=== PATIENT | male | born 1975 | race Caucasian/White ===

== ENCOUNTER 2022-12-19 18:21 | Emergency (ER) | payer OTHER, SELFPAY ==
[2022-12-19 18:30] VITALS: BP 159/106; PULSE 100; RESP 20; TEMP 36.9; O2SAT 97; BMI 30.4
--- NOTE | 2022-12-19 18:48 | XR_ITS ---
The [address] [address] Patient Name: ZAHEER RODRIGUEZ MRN: [id number] date: 1975 Sex: M Assigned Patient Location: ER Current Patient Location: ER Accession/Order Number: [id number] Exam Date: 12/19/2022 19:00 Report Date: 12/19/2022 19:20 At the request of: BRET LUCIO Procedure: XR ankle LT min 3V EXAM: XR ankle LT min 3V HISTORY: Pain COMPARISON: None. TECHNIQUE: 3 views FINDINGS: No osseous lesion, fracture, dislocation or subluxation. Joint spaces are normal. The pre-Achilles fat is visualized. No visualized effusion. No visualized soft tissue edema. Scattered atherosclerosis of the vascular structures XR/XR ankle LT min 3V IMPRESSION: No visualized acute abnormality Electronically authenticated by: DENISE JIMENEZ Date: 12/19/2022 19:20
--- NOTE | 2022-12-19 18:49 | ED.LOWEXI1 ---
HPI - Extremity Injury (Lower) General Chief Complaint: Extremity Injury, Lower Stated Complaint: leg injury Time Seen by Provider: 12/19/22 18:36 Source: patient Mode of arrival: walk-in Limitations: no limitations History of Present Illness HPI Narrative: 47-year-old male presents for pain in his left heel leave area. He was playing tennis today and he was pushing off with this leg and he felt like some him with a baseball bat. The lower gastrocnemius area going into the Achilles tendon region. No other injury was sustained. No knee pain. Related Data Home Medications Medication Instructions Recorded Confirmed No Known Home Medications 12/19/22 12/19/22 Allergies Allergy/AdvReac Type Severity Reaction Status Date / Time No Known Drug Allergies Allergy Verified 12/19/22 18:30 Review of Systems ROS Narrative A ten point review of systems is negative except as noted above. PFSH PFSH Social History Smoking status: Former smoker Exam Narrative Exam Narrative: Nurses note and vital signs reviewed and patient is not hypoxic. General: The patient appears well and in no apparent distress. Patient is resting comfortably on cart. Skin: Warm, dry, no pallor noted. There is no rash noted. Head: Normocephalic, atraumatic Eye: Normal conjunctiva, no drainage Ears, Nose, Mouth, and Throat: oral mucosa is moist. Nares patent. Cardiovascular: Regular Rate and Rhythm Respiratory: Patient is in no distress, no accessory muscle use, lungs are clear to auscultation, no wheezing, rales or rhonchi Back: non-tender GI: soft and nontender Musculoskeletal: he has no palpable tenderness over the lateral or medial malleoli. He has a defect at the Achilles tendon on the left with abnormal Baker's test. Skin intact. Neurological: A&O, normal speech Psychiatric: Cooperative Constitutional Vital Signs, click to edit/add: Last Vital Signs Temp 98.4 F 12/19/22 18:30 Pulse 100 H 12/19/22 18:30 Resp 20 12/19/22 18:30 BP 159/106 H 12/19/22 18:30 Pulse Ox 97 12/19/22 18:30 O2 Del Method Room Air 12/19/22 18:30 Course Vital Signs Vital signs: Vital Signs Temperature 98.4 F 12/19/22 18:30 Pulse Rate 100 H 12/19/22 18:30 Respiratory Rate 20 12/19/22 18:30 Blood Pressure 159/106 H 12/19/22 18:30 Pulse Oximetry 97 12/19/22 18:30 Oxygen Delivery Method Room Air 12/19/22 18:30 Temperature 98.4 F 12/19/22 18:30 Pulse Rate 100 H 12/19/22 18:30 Respiratory Rate 20 12/19/22 18:30 Blood Pressure 159/106 H 12/19/22 18:30 Pulse Oximetry 97 12/19/22 18:30 Oxygen Delivery Method Room Air 12/19/22 18:30 MDM - Extremity Injury (Lower) MDM Narrative Medical decision making narrative: I suspect Achilles tendon rupture. X-rays ordered and the patient is signed out to Dr. De La Cruz at change of shift. Differential Diagnosis Differential diagnosis: Likely other (avulsion fracture, Achilles rupture, Achilles strain) Discharge Plan Discharge Patient Disposition: Still a Patient
== END 2022-12-19 20:25 | disposition home or self-care (01) ==
PROVIDERS: Emergency Provider Emergency Medicine; PCP Family Medicine
DX: M79.662 Pain in left lower leg (principal); Z87.891 Personal history of nicotine dependence
CPT/HCPCS: 73610; 99283